=== PATIENT | female | born 1965 | race Caucasian/White ===

== ENCOUNTER 2017-06-26 03:00 | Inpatient (IN) | payer MEDICAID, OTHER ==
[~2017-06-26] VITALS: Ht 154.9 cm; Wt 77.4 kg
[~2017-06-26 03:00] MED LIST: PREN-39
[2017-06-26] MEDS ORDERED: HYDR25TA6 PO (03:48)
[2017-06-26] MEDS ORDERED: LISI10TA2 PO (03:48)
[2017-06-26 03:58] VITALS: BP 137/78; RESP 18
[2017-06-26 04:00] VITALS: Ht 154.9 cm; Wt 77.4 kg
[2017-06-26] MEDS ORDERED: ONDANSETRON 4 MG INJ IV PRN (04:00)
[2017-06-26] MEDS ORDERED: ACETAMINOPHEN 325 MG TAB PO PRN (04:00)
[2017-06-26] MEDS ORDERED: NACL 0.9% 3 ML SYG IV SCH (04:00)
[2017-06-26] MEDS ORDERED: BISACODYL (EC) 5 MG TAB PO PRN (04:00)
[2017-06-26] MEDS ORDERED: DOCUSATE SODIUM 100 MG CAP PO PRN (04:00)
[2017-06-26] MEDS ORDERED: ALBUTEROL 0.083% (NEB) 2.5 MG/3 ML AMP HHN SCH (05:00)
[2017-06-26] MEDS: ALBUTEROL 0.083% (NEB) 2.5 MG/3 ML AMP HHN SCH ×5 (05:32→20:29)
[2017-06-26 06:44] LABS: BASOPHILS % 0.1 % (0.0-2.0); HEMATOCRIT 40.9 % (37.0-47.0); HEMOGLOBIN 13.3 g/dl (12.0-16.0); LYMPHOCYTES # 1.6 10^3/ul (0.8-2.9); LYMPHOCYTES % 16.4 % (15.0-51.0); MEAN CORPUSCULAR HGB CONC 32.5 g/dl (32.0-37.0); MEAN CORPUSCULAR VOLUME 92.3 fl (82.0-101.0); MONOCYTES % 0.4 % (0.0-11.0); NEUTROPHIL # 8.2 10^3/ul (1.6-7.5); NEUTROPHILS % 82.8 % (39.0-77.0); PLATELET COUNT 246 10^3/UL (140-415); RED BLOOD COUNT 4.43 10^6/ul (4.20-5.40); RED CELL DISTRIBUTION WIDTH 13.4 % (11.5-14.5); WHITE BLOOD COUNT 9.9 10^3/ul (4.8-10.8)
[2017-06-26] MEDS: PANTOPRAZOLE (EC) 40 MG TAB PO SCH (07:05)
[2017-06-26] MEDS: FLUTICASONE 0.05% 16 GM NAS SPRAY NASAL SCH ×2 (07:05→20:41)
[2017-06-26 07:08] LABS: ALBUMIN 4.2 g/dl (3.3-4.9); ALBUMIN/GLOBULIN RATIO 1.27; BILIRUBIN,INDIRECT 0.2 mg/dl (0-1.1); BILIRUBIN,TOTAL 0.2 mg/dl (0.2-1.3); CALCIUM 9.7 mg/dl (8.4-10.2); CHOL/HDL RATIO 2.8 RATIO; CREATININE 0.72 mg/dl (0.44-1.00); MAGNESIUM 1.7 mg/dl (1.7-2.5); POTASSIUM 4.2 mmol/L (3.5-5.1); TOTAL PROTEIN 7.5 g/dl (6.1-8.1)
[2017-06-26] MEDS ORDERED: SOD CHLORIDE 0.9% 1,000 ML IV ONE ×2 (07:30→16:30)
--- NOTE | 2017-06-26 07:37 | HP ---
Date/Time of Note Date/Time of Note DATE: 06/26/17 TIME: 07:32 Assessment/Plan VTE Prophylaxis VTE Prophylaxis Intervention: SCD's Lines/Catheters IV Catheter Type (from [facility] Saline Lock Urinary Cath still in place: No Assessment/Plan Chief Complaint/Hosp Course This is a 52-year-old female being admitted to the [facility] floor for: #1 asthma exacerbation: Albuterol every 4 hours, prednisone 40 mg p.o. daily for 5 day burst.. Lactate level is elevated at 5. Patient is afebrile and normal white blood cell count. At the current time secondary to her extensive cough, will start her on Levaquin. Will order repeat chest x-ray. CTA scan as per the transfer facility was negative for pneumonia and PE, however family states they were told she had pneumonia. We may need to consult pulmonology. #2 lactic acidosis: Lactate level was 5.0. At the current time patient is afebrile and white blood cell count is normal As patient has been dealing with respiratory symptoms were approximately 1 month at the current time we will treat patient with Levaquin. Chest x-ray has been ordered. Blood cultures will also be drawn. Will provide patient with IV fluid hydration with normal saline. Will also order CRP and ESR level along with respiratory viral panel. #2 #3 persistent cough: Patient had a persistent cough for approximately 1 month. As per the transferring facility the chest x-ray and CTA were negative though I do not have the official results. We do have the disc which I will send to radiology for uploading and a read. Patient also states that she has acid reflux and she has also been on lisinopril for approximately 4 years. At the current time we will treat her with Protonix 40mg one tab daily. Will also hold the lisinopril and try an alternate agent such as an ARB. I will also give the patient Flonase. We may need to consult pulmonology. #4 hypertension: We will continue hydrochlorothiazide however we will hold the lisinopril at this time And likely will need to switch to a different medication such as an ARB. #5 DVT GI prophylaxis: SCDs, Protonix Further treatment strategy will be implemented for the clinical course : Problems: HPI/ROS Admit Date/Time Admit Date/Time Jun 26, 2017 at 03:00 Hx of Present Illness Finish my notes after my shift is Chief complaint: Cough 1 month, shortness of breath This is a 52-year-old female was transferred from [facility] 4 suspected asthma exacerbation. Patient states that she had a cough for approximately 1 month. She does report that at times she had noted subjective fevers as well. She states her cough is dry though at times she does feel like she has phlegm but she is unable to get it out. Of note patient also states that she has noticed a lot of burning in her chest area substernally especially when she eats fried or spicy foods. Of note when spoken to the ED physician at [facility] they stated the chest x-ray was negative and then the CTA of the chest was also negative. They reported that the lactate was within normal values however upon arrival of the patient and the document and after the documentation was reviewed show that the patient did have an elevated lactate level of approximately 21.3 as per their lab value range.. Repeat lactate level in our facility was 5. I do not have the reports for the chest x-ray or the CTA, a disc was sent we will need to upload that. Patient also states that she has been on her blood pressure medication hydrochlorothiazide and lisinopril for approximately 4 years. Allergies: NKDA Medications: See NOV ROS Const: As per HPI Eyes : No pain discharge or redness or change in visual acuity ENT: No pain, sore throat, congestion, congestion, dysphagia or discharge Respiratory: As per HPI Cardiovascular: No chest pain, palpitation, PND, or edema GI : no change in appetite, abdominal pain, nausea, vomiting, diarrhea, constipation, or change in the color his stool Genitourinary: No dysuria, hematuria, flank pain , discharge or CVA tenderness Musculoskeletal: No joint pain, back pain, neck pain, restricted range of motion in neck or joints Skin: No rash, bruising or hives Neuro: No headache, dizziness, syncope, seizure, focal weakness Endocrine: No polyuria, polydipsia, temperature intolerance Psych: No hallucination, depression, anxiety or suicidal ideation PMH/Family/Social Past Medical History Hypertension, asthma, acid reflux Past Surgical History Past Surgical Hx: no surgical history Family History Significant Family History: no pertinent family hx Social History Alcohol Use: none Smoking Status: Never smoker Drug Use: none Exam/Review of Systems Vital Signs Vitals Vital Signs Date Time Temp Pulse Resp B/P Pulse Ox O2 Delivery O2 Flow Rate FiO2 06/26/17 05:37 98 2.0 06/26/17 05:36 71 18 Nasal Cannula 06/26/17 03:58 98.0 137/78 Intake and Output 06/25/17 06/25/17 06/26/17 15:00 23:00 07:00 Intake Total 360 ml Balance 360 ml Exam Exam General: Patient is an obese female lying in bed in no acute respiratory distress but she is coughing HEENT: Atraumatic, normocephalic. The pupils are equal, round and reactive. Extraocular motor are intact Neck: Supple with full range of motion. No rigidity or meningismus Chest: Nontender Lungs: Clear to auscultation bilaterally, coughing nonproductive Heart: Normal S1-S2, Regular rhythm and rate. Abdomen: Soft , nontender, nondistended , bowel sounds are present. No guarding no rebound tenderness , No masses or organomegaly. No costovertebral temporal angle mass Extremities: Normal to inspection, no edema no cyanosis Neurologic: Normal mental status, speech normal, cranial nerves II through XII are intact, motor and sensory are intact, no focal weakness Labs Result Diagram: 06/26/17 0606/26/17 06 Medications Medications Current Medications Ondansetron HCl (Zofran Inj) 4 mg Q6H PRN IV NAUSEA AND/OR VOMITING; Start at 04:00 Acetaminophen (Tylenol Tab) 650 mg Q6H PRN PO PAIN LEVEL 1-3 OR FEVER; Start 06/26/17 at 04:00 Docusate Sodium (Colace) 100 mg Q12H PRN PO CONSTIPATION; Start 06/26/17 at 04 :00 Bisacodyl (Dulcolax) 5 mg DAILY PRN PO CONSTIPATION; Start 06/26/17 at 04:00 Pantoprazole (Protonix Tab) 40 mg DAILY@06 PO Last administered on 06/26/17 07:05; Admin Dose 40 MG; Start 06/26/17 at 06:00 Prednisone (Prednisone) 40 mg DAILY PO ; Start 06/26/17 at 09:00; Stop at 08:59 Fluticasone Propionate 1 spray 1 spray BID NASAL Last administered on 07:05; Admin Dose 1 SPRAY; Start 06/26/17 at 04:30 Sodium Chloride 1,000 ml @ 1,000 mls/hr Q1H ONCE IV ; Start 06/26/17 at 07:30 ; Stop 06/26/17 at 08:29 Sodium Chloride 1,000 ml @ 70 mls/hr [id number] IV ; Start 06/26/17 at 07:30 Levofloxacin/ Dextrose (Levaquin 750 Mg/ D5W 150 ml (Pmx)) 150 ml @ 100 mls/hr ONCE ONCE IVPB ; Start 06/26/17 at 07:30; Stop 06/26/17 at 08:59; Status NAZARIO LEW Jun 26, 2017 07:37
[2017-06-26 08:00] VITALS: BP 140/79; RESP 18
[2017-06-26 08:12] LABS: THYROID STIMULATING HORMONE 1.51 MIU/L (0.465-4.680)
[2017-06-26] MEDS: predniSONE 20 MG TAB PO SCH (08:29)
--- NOTE | 2017-06-26 08:43 | RADRPT ---
PROCEDURE: XR Chest PA and Lateral CLINICAL INDICATION: Cough x1 month TECHNIQUE: PA and Lateral views of the chest were obtained. COMPARISON: None. FINDINGS: Cardiovascular: The cardiovascular silhouette appears unremarkable. Lung Hernandes: The lung hernandes appear clear with no nodule, alveolar infiltrate, or interstitial promi nence evident. Pleural Spaces: No pneumothorax is identified and no effusion is evident. Osseous Structures: The osseous structures appear intact. Soft Tissues: The soft tissues appear unremarkable. IMPRESSION: Unremarkable chest. Physician Derik Date Time Electronically viewed and signed by Physician Derik on 06/26/2017 08:43 /
[2017-06-26] MEDS ORDERED: LEVOFLOXACIN 750MG/D5W (PMX) 150 ML IVPB ONE (09:00)
--- NOTE | 2017-06-26 10:03 | PN ---
Date/Time of Note Date/Time of Note DATE: 06/26/17 TIME: 10:03 Assessment/Plan VTE Prophylaxis VTE Prophylaxis Intervention: SCD's Lines/Catheters IV Catheter Type (from Nrs): Saline Lock Urinary Cath still in place: No Assessment/Plan Assessment/Plan 1. Acute asthma exacerbation - Patient has not been receiving adequate medication as outpatient for frequent use of rescue inhaler - Pulmonology on board and recommendations appreciated. Will need PFTs as outpatient - CXR showed no acute abnormalities - Currently short course of steroids - Started on Advair - PRN nebs 2. Sepsis secondary to ?PNA - LA on presentation 5 and repeat 4. 3. Will continue to trend until resolution - Currently on Levaquin and IVF - Per family, CT scan of chest performed at hospital prior to transferred showed pneumonia - Disk to be sent to our radiologist 3. Persistent cough - Given PPI and Flonase - will monitor - Guaifenesin with codeine for relief 4. HTN - on Hctz - Will monitor and adjust as needed - Was on Lisinopril at home but held due to dry cough - Will add ARB if BP elevated 5. Disposition - Continue monitoring Subjective 24 Hr Interval Summary Free Text/Dictation Patient states she still experiencing shortness of breath but improving after neb treatments and O2 supplements. Experiencing pain in right shoulder and diaphragm area secondary to coughing. Denies any fevers, chills, nausea, vomiting, or abdominal issues. States prior to 3 days ago she was needing to use her rescue inhaler at least 2 nights a week and 3-5 times weekly as well Exam/Review of Systems Vital Signs Vitals Vital Signs Date Time Temp Pulse Resp B/P Pulse Ox O2 Delivery O2 Flow Rate FiO2 06/26/17 08:22 99 18 96 Nasal Cannula 3.0 06/26/17 08:00 98.2 140/79 Intake and Output 06/25/17 06/25/17 06/26/17 15:00 23:00 07:00 Intake Total 360 ml Balance 360 ml Exam General: Obese female, in NAD, NC in place. occasional dry cough HEENT: Atraumatic, normocephalic. The pupils are equal, round and reactive. Extraocular motor are intact Neck: Supple with full range of motion. Lungs: Clear to auscultation bilaterally, no wheezing or crackles Heart: Normal S1-S2, Regular rhythm and rate. Abdomen: Soft , nontender, nondistended , bowel sounds are present. No guarding no rebound tenderness , No masses or organomegaly. No costovertebral temporal angle mass Extremities: Normal to inspection, no edema no cyanosis Neurologic: Normal mental status, speech normal, cranial nerves II through XII are intact, motor and sensory are intact, no focal weakness Results Result Diagram: 06/26/17 0601 06/26/17 0601 Results 24 hrs Laboratory Tests Test 06/26/17 06:01 06/26/17 06:12 White Blood Count 9.9 Red Blood Count 4.43 Hemoglobin 13.3 Hematocrit 40.9 Mean Corpuscular Volume 92.3 Mean Corpuscular Hemoglobin 30.0 Mean Corpuscular Hemoglobin Concent 32.5 Red Cell Distribution Width 13.4 Platelet Count 246 Mean Platelet Volume 12.0 H Neutrophils % 82.8 H Lymphocytes % 16.4 Monocytes % 0.4 Eosinophils % 0.0 Basophils % 0.1 Nucleated Red Blood Cells % 0.0 Neutrophils # 8.2 H Lymphocytes # 1.6 Monocytes # 0.0 L Eosinophils # 0.0 Basophils # 0.0 Nucleated Red Blood Cells # 0.0 Sodium Level 142 Potassium Level 4.2 Chloride Level 106 Carbon Dioxide Level 21 Anion Gap 19 H Blood Urea Nitrogen 10 Creatinine 0.72 Glucose Level 236 H Hemoglobin A1c 6.5 H Lactic Acid Level 5.0 *H Calcium Level 9.7 Magnesium Level 1.7 Total Bilirubin 0.2 Direct Bilirubin 0.00 Indirect Bilirubin 0.2 Aspartate Amino Transf (AST/SGOT) 30 Alanine Aminotransferase (ALT/SGPT) 43 Alkaline Phosphatase 88 Total Protein 7.5 Albumin 4.2 Globulin 3.30 H Albumin/Globulin Ratio 1.27 Triglycerides Level 55 Cholesterol Level 245 H LDL Cholesterol, Calculated 149 HDL Cholesterol 85 Cholesterol/HDL Ratio 2.8 Thyroid Stimulating Hormone (TSH) 1.510 C-Reactive Protein 0.8 Medications Medications Current Medications Ondansetron HCl (Zofran Inj) 4 mg Q6H PRN IV NAUSEA AND/OR VOMITING; Start at 04:00 Acetaminophen (Tylenol Tab) 650 mg Q6H PRN PO PAIN LEVEL 1-3 OR FEVER; Start 06/26/17 at 04:00 Docusate Sodium (Colace) 100 mg Q12H PRN PO CONSTIPATION; Start 06/26/17 at 04 :00 Bisacodyl (Dulcolax) 5 mg DAILY PRN PO CONSTIPATION; Start 06/26/17 at 04:00 Pantoprazole (Protonix Tab) 40 mg DAILY@06 PO Last administered on 06/26/17 07:05; Admin Dose 40 MG; Start 06/26/17 at 06:00 Prednisone (Prednisone) 40 mg DAILY PO Last administered on 06/26/17 08:29; Admin Dose 40 MG; Start 06/26/17 at 09:00; Stop 07/01/17 at 08:59 Fluticasone Propionate 1 spray 1 spray BID NASAL Last administered on 07:05; Admin Dose 1 SPRAY; Start 06/26/17 at 04:30 Sodium Chloride 1,000 ml @ 70 mls/hr [id number] IV ; Start 06/26/17 at 07:30 Levofloxacin/ Dextrose (Levaquin 750 Mg/ D5W 150 ml (Pmx)) 150 ml @ 100 mls/hr ONCE ONCE IVPB Last administered on 06/26/17 08:31; Admin Dose 100 MLS/HR; Start 06/26/17 at 09:00; Stop 06/26/17 at 10:29 Lidocaine (Lidoderm) 1 patch DAILY TD ; Start 06/26/17 at 10:00 Guaifenesin/ Codeine Phosphate (Robitussin Ac Liquid Cup) 5 ml Q4H PRN PO cough ; Start 06/26/17 at 10:00 MARYJO MOORE MD Jun 26, 2017 10:03
[2017-06-26] MEDS: SOD CHLORIDE 0.9% 1,000 ML IV SCH ×3 (10:52→23:49)
--- NOTE | 2017-06-26 12:39 | CONS ---
Date/Time of Note Date/Time of Note DATE: 06/26/17 TIME: 12:35 Assessment/Plan Assessment/Plan Additional Assessment/Plan Chest x-ray was reviewed from today which is totally clear. Assessment and recommendations; 1. Patient admitted with acute asthma exacerbation with bronchitis with marked clinical improvement. 2. Asthma suboptimally controlled on outpatient basis. Continue current treatment. Patient would benefit from a PFT on an outpatient basis. Also would benefit from initiation of long-acting steroid inhaler as well as bronchodilator on a regular basis. Consultation Date/Type/Reason Admit Date/Time Jun 26, 2017 at 03:00 Date of Consultation: Jun 26, 2017 Type of Consultation: Pulmonary Reason for Consultation Pulmonary consultation requested for evaluation of asthma. History of presenting any; patient is a pleasant 52-year-old lady who came into the emergency room early this morning with complaints of shortness of breath and wheezing going on for the last few days with cough and sputum production. Patient however denied having any fever, chills any body aches or myalgias. Upon evaluation patient was diagnosed with asthma exacerbation and started on prednisone with marked overall improvement. Next Past medical history; 1. History of lifelong asthma which apparently is suboptimally controlled on outpatient basis. 2. History of hypertension. Medications; reviewed. Allergies; none. Family history; patient is single she has 5 children. No history of any illnesses in the family. Occupational history; patient works in a [employer] factory. Pets; patient has 2 cats. Review systems; denies any headache, visual changes, sinus symptoms. Any chest pain. Shortness of breath is markedly improved. There has been interval resolution of wheezing. Complains of very scant cough. Denies any acid reflux. Any abdominal pain, nausea vomiting. Any weight loss. Any edema. And orthopnea. Any GI or urinary symptoms. Patient does complain of occasional wheezing off and on outpatient basis. Also complains of nocturnal wheezing. General exam; young female, awake alert, currently in no distress. Past Surgical History Past Surgical Hx: no surgical history Social History Alcohol Use: none Smoking Status: Never smoker Drug Use: none Exam/Review of Systems Vital Signs Vitals Vital Signs Date Time Temp Pulse Resp B/P Pulse Ox O2 Delivery O2 Flow Rate FiO2 06/26/17 08:22 99 18 96 Nasal Cannula 3.0 06/26/17 08:00 98.2 140/79 Intake and Output 06/25/17 06/25/17 06/26/17 15:00 23:00 07:00 Intake Total 360 ml Balance 360 ml Exam HEENT exam; supple neck, no JVD. No lymphadenopathy. Midline trachea. No thyromegaly. Pharynx is clear. Patient has good dentition. There is no sinus tenderness. Pupils are midsize and reactive to light. Chest exam; clear to auscultation. S1-S2 audible, no murmurs. Regular rhythm. Abdomen exam; soft, nontender. No organomegaly. Bowel sounds audible. Extremity exam; no peripheral edema. STAFF NUCLEAR MEDICINE TECHNOLOGIST exam; no focal deficit. Results Result Diagram: 06/26/17 0601 06/26/17 0601 Results 24 hrs Laboratory Tests Test 06/26/17 06:01 06/26/17 06:12 White Blood Count 9.9 Red Blood Count 4.43 Hemoglobin 13.3 Hematocrit 40.9 Mean Corpuscular Volume 92.3 Mean Corpuscular Hemoglobin 30.0 Mean Corpuscular Hemoglobin Concent 32.5 Red Cell Distribution Width 13.4 Platelet Count 246 Mean Platelet Volume 12.0 H Neutrophils % 82.8 H Lymphocytes % 16.4 Monocytes % 0.4 Eosinophils % 0.0 Basophils % 0.1 Nucleated Red Blood Cells % 0.0 Neutrophils # 8.2 H Lymphocytes # 1.6 Monocytes # 0.0 L Eosinophils # 0.0 Basophils # 0.0 Nucleated Red Blood Cells # 0.0 Sodium Level 142 Potassium Level 4.2 Chloride Level 106 Carbon Dioxide Level 21 Anion Gap 19 H Blood Urea Nitrogen 10 Creatinine 0.72 Glucose Level 236 H Hemoglobin A1c 6.5 H Lactic Acid Level 5.0 *H Calcium Level 9.7 Magnesium Level 1.7 Total Bilirubin 0.2 Direct Bilirubin 0.00 Indirect Bilirubin 0.2 Aspartate Amino Transf (AST/SGOT) 30 Alanine Aminotransferase (ALT/SGPT) 43 Alkaline Phosphatase 88 Total Protein 7.5 Albumin 4.2 Globulin 3.30 H Albumin/Globulin Ratio 1.27 Triglycerides Level 55 Cholesterol Level 245 H LDL Cholesterol, Calculated 149 HDL Cholesterol 85 Cholesterol/HDL Ratio 2.8 Thyroid Stimulating Hormone (TSH) 1.510 Erythrocyte Sedimentation Rate 21 C-Reactive Protein 0.8 Medications Medications Current Medications Ondansetron HCl (Zofran Inj) 4 mg Q6H PRN IV NAUSEA AND/OR VOMITING; Start at 04:00 Acetaminophen (Tylenol Tab) 650 mg Q6H PRN PO PAIN LEVEL 1-3 OR FEVER; Start 06/26/17 at 04:00 Docusate Sodium (Colace) 100 mg Q12H PRN PO CONSTIPATION; Start 06/26/17 at 04 :00 Bisacodyl (Dulcolax) 5 mg DAILY PRN PO CONSTIPATION; Start 06/26/17 at 04:00 Pantoprazole (Protonix Tab) 40 mg DAILY@06 PO Last administered on 06/26/17 07:05; Admin Dose 40 MG; Start 06/26/17 at 06:00 Prednisone (Prednisone) 40 mg DAILY PO Last administered on 06/26/17 08:29; Admin Dose 40 MG; Start 06/26/17 at 09:00; Stop 07/01/17 at 08:59 Fluticasone Propionate 1 spray 1 spray BID NASAL Last administered on 07:05; Admin Dose 1 SPRAY; Start 06/26/17 at 04:30 Sodium Chloride (NS) 1,000 ml @ 70 mls/hr [id number] IV Last administered on 10:52; Admin Dose 70 MLS/HR; Start 06/26/17 at 07:30 Lidocaine (Lidoderm) 1 patch DAILY TD ; Start 06/26/17 at 10:00 Guaifenesin/ Codeine Phosphate (Robitussin Ac Liquid Cup) 5 ml Q4H PRN PO cough ; Start 06/26/17 at 10:00 Salmeterol Xinafoate/ Fluticasone (Advair 100/50 Diskus) 1 inh BID INH ; Start 06/26/17 at 10:00 SARAH YOUNGER Jun 26, 2017 12:39
[2017-06-26] MEDS: SALMETEROL/FLUTICASONE 100/50 INHA INH SCH ×2 (13:10→20:41)
[2017-06-26] MEDS: LIDOCAINE 5% PATCH TD SCH (13:12)
[2017-06-26 14:00] VITALS: BP 129/77; RESP 18
[2017-06-26 20:12] VITALS: BP 117/72; RESP 18
[2017-06-27] MEDS: ALBUTEROL 0.083% (NEB) 2.5 MG/3 ML AMP HHN SCH ×6 (00:10→21:46)
[2017-06-27 02:19] VITALS: BP 131/77; RESP 18
[2017-06-27] MEDS: PANTOPRAZOLE (EC) 40 MG TAB PO SCH (06:08)
[2017-06-27 06:34] LABS: BASOPHILS % 0.2 % (0.0-2.0); HEMATOCRIT 38.1 % (37.0-47.0); HEMOGLOBIN 12.2 g/dl (12.0-16.0); LYMPHOCYTES % 25.3 % (15.0-51.0); MEAN CORPUSCULAR HEMOGLOBIN 30.1 pg (29.0-33.0); MEAN CORPUSCULAR VOLUME 94.1 fl (82.0-101.0); MEAN PLATELET VOLUME 11.9 fl (7.4-10.4); MONOCYTE # 0.7 10^3/ul (0.3-0.9); MONOCYTES % 6.1 % (0.0-11.0); NEUTROPHIL # 8.1 10^3/ul (1.6-7.5); NEUTROPHILS % 67.8 % (39.0-77.0); PLATELET COUNT 228 10^3/UL (140-415); RED BLOOD COUNT 4.05 10^6/ul (4.20-5.40); RED CELL DISTRIBUTION WIDTH 13.9 % (11.5-14.5); WHITE BLOOD COUNT 11.9 10^3/ul (4.8-10.8)
[2017-06-27 07:08] LABS: ALBUMIN 3.6 g/dl (3.3-4.9); CREATININE 0.71 mg/dl (0.44-1.00); PHOSPHORUS 3.6 mg/dl (2.5-4.9); POTASSIUM 4.2 mmol/L (3.5-5.1)
[2017-06-27 08:00] VITALS: BP 137/81; RESP 20
[2017-06-27] MEDS: predniSONE 20 MG TAB PO SCH (09:08)
[2017-06-27] MEDS: SALMETEROL/FLUTICASONE 100/50 INHA INH SCH ×2 (09:10→21:30)
[2017-06-27] MEDS: LIDOCAINE 5% PATCH TD SCH (09:10)
[2017-06-27] MEDS: FLUTICASONE 0.05% 16 GM NAS SPRAY NASAL SCH ×2 (09:10→21:30)
[2017-06-27] MEDS ORDERED: SOD CHLORIDE 0.9% 1,000 ML IV ONE (11:30)
--- NOTE | 2017-06-27 12:34 | CONS ---
Date/Time of Note Date/Time of Note DATE: 06/27/17 TIME: 12:32 Assessment/Plan Assessment/Plan Additional Assessment/Plan Assessment and recommendations; 1. Patient admitted with asthma exacerbation and acute bronchitis with marked clinical improvement. 2. Suboptimally controlled asthma on outpatient basis. Patient apparently only on short acting bronchodilator. Continue current treatment. Consider discharge. Patient would benefit from initiation of long-acting beta agonist in conjunction with the inhaled steroid on a regular basis. Consultation Date/Type/Reason Admit Date/Time Jun 26, 2017 at 03:00 Initial Consult Date 06/26/17 Type of Consultation: Pulmonary 24 HR Interval Summary Free Text/Dictation Patient's condition is stable. Denies any shortness of breath, wheezing or cough. General exam; young female, awake alert, currently in no distress. Exam/Review of Systems Vital Signs Vitals Vital Signs Date Time Temp Pulse Resp B/P Pulse Ox O2 Delivery O2 Flow Rate FiO2 06/27/17 08:58 2.0 06/27/17 08:44 96 20 06/27/17 08:00 98.8 137/81 98 06/27/17 04:18 21 06/26/17 08:22 Nasal Cannula Intake and Output 06/26/17 06/26/17 06/27/17 15:00 23:00 07:00 Intake Total 1150 ml 1780 ml 1580 ml Balance 1150 ml 1780 ml 1580 ml Exam HEENT exam; supple neck, no JVD. No lymphadenopathy. Midline trachea. No thyromegaly. Pharynx is clear. Patient has fair dentition. Chest exam; clear to auscultation. S1-S2 audible, no murmurs. Regular rhythm. Abdomen exam; soft, nontender. No organomegaly. Bowel sounds audible. Extremity exam; no peripheral edema. BUSINESS ACCOUNT SPECIALIST exam; no focal deficit. Results Result Diagram: 06/27/17 0548 06/27/17 0548 Results 24 hrs Laboratory Tests Test 06/26/17 13:58 06/26/17 14:51 06/26/17 17:33 06/26/17 18:27 Bedside Glucose 190 232 H Lactic Acid Level 4.8 *H 4.0 *H Test 06/26/17 22:13 06/27/17 05:48 06/27/17 09:31 Lactic Acid Level 3.9 *H 3.4 *H 3.6 *H White Blood Count 11.9 #H Red Blood Count 4.05 L Hemoglobin 12.2 Hematocrit 38.1 Mean Corpuscular Volume 94.1 Mean Corpuscular Hemoglobin 30.1 Mean Corpuscular Hemoglobin Concent 32.0 Red Cell Distribution Width 13.9 Platelet Count 228 Mean Platelet Volume 11.9 H Neutrophils % 67.8 Lymphocytes % 25.3 Monocytes % 6.1 Eosinophils % 0.0 Basophils % 0.2 Nucleated Red Blood Cells % 0.0 Neutrophils # 8.1 H Lymphocytes # 3.0 H Monocytes # 0.7 Eosinophils # 0.0 Basophils # 0.0 Nucleated Red Blood Cells # 0.0 Sodium Level 146 H Potassium Level 4.2 Chloride Level 112 H Carbon Dioxide Level 24 Anion Gap 14 Blood Urea Nitrogen 9 Creatinine 0.71 Glucose Level 108 # Calcium Level 9.0 Phosphorus Level 3.6 Magnesium Level 2.0 Albumin 3.6 Medications Medications Current Medications Ondansetron HCl (Zofran Inj) 4 mg Q6H PRN IV NAUSEA AND/OR VOMITING; Start at 04:00 Acetaminophen (Tylenol Tab) 650 mg Q6H PRN PO PAIN LEVEL 1-3 OR FEVER; Start 06/26/17 at 04:00 Docusate Sodium (Colace) 100 mg Q12H PRN PO CONSTIPATION; Start 06/26/17 at 04 :00 Bisacodyl (Dulcolax) 5 mg DAILY PRN PO CONSTIPATION; Start 06/26/17 at 04:00 Pantoprazole (Protonix Tab) 40 mg DAILY@06 PO Last administered on 06/27/17 06:08; Admin Dose 40 MG; Start 06/26/17 at 06:00 Prednisone (Prednisone) 40 mg DAILY PO Last administered on 06/27/17 09:08; Admin Dose 40 MG; Start 06/26/17 at 09:00; Stop 07/01/17 at 08:59 Fluticasone Propionate 1 spray 1 spray BID NASAL Last administered on 09:10; Admin Dose 1 SPRAY; Start 06/26/17 at 04:30 Sodium Chloride (NS) 1,000 ml @ 100 mls/hr Q10H IV Last administered on 23:49; Admin Dose 100 MLS/HR; Start 10/18/17 at 07:30 Lidocaine (Lidoderm) 1 patch DAILY TD Last administered on 06/27/17 09:10; Admin Dose 1 PATCH; Start 06/26/17 at 10:00 Guaifenesin/ Codeine Phosphate (Robitussin Ac Liquid Cup) 5 ml Q4H PRN PO cough ; Start 06/26/17 at 10:00 Salmeterol Xinafoate/ Fluticasone (Advair 100/50 Diskus) 1 inh BID INH Last administered on 06/27/17 09:10; Admin Dose 1 INH; Start 06/26/17 at 10:00 SARAH YOUNGER Jun 27, 2017 12:34
[2017-06-27 14:00] VITALS: BP 137/81; RESP 20
--- NOTE | 2017-06-27 14:34 | PN ---
Date/Time of Note Date/Time of Note DATE: 06/27/17 TIME: 14:34 Assessment/Plan VTE Prophylaxis VTE Prophylaxis Intervention: SCD's Lines/Catheters IV Catheter Type (from [facility]): Peripheral IV Urinary Cath still in place: No Assessment/Plan Assessment/Plan 1. Acute asthma exacerbation- improving - Patient feeling better and tolerating bronchodilators - Patient has not been receiving adequate medication as outpatient for frequent use of rescue inhaler - Pulmonology on board and recommendations appreciated. Will need PFTs as outpatient - CXR showed no acute abnormalities - Currently short course of steroids - Doing well on RA - PRN nebs 2. Sepsis secondary to ?PNA - LA still elevated but has been trending downward. LA this am was 3.6 and given another bolus of fluids. Will continue to trend until resolution - Currently on Levaquin and IVF - Per family, CT scan of chest performed at hospital prior to transferred showed pneumonia - Disk to be sent to our radiologist 3. Persistent cough - Given PPI and Flonase - will monitor - Guaifenesin with codeine for relief 4. HTN - on Hctz - Will monitor and adjust as needed - Was on Lisinopril at home but held due to dry cough. Currently stable 5. Disposition - Continue monitoring until resolution of lactic acid Subjective 24 Hr Interval Summary Free Text/Dictation Patient states her respiratory status has been improving on current treatments and has new complaints. No acute overnight events. Patient lactic acid is still elevated but has been trending downward.. Exam/Review of Systems Vital Signs Vitals Vital Signs Date Time Temp Pulse Resp B/P Pulse Ox O2 Delivery O2 Flow Rate FiO2 06/27/17 13:05 96 18 06/27/17 08:58 2.0 06/27/17 08:00 98.8 137/81 98 06/27/17 04:18 21 06/26/17 08:22 Nasal Cannula Intake and Output 06/26/17 06/26/17 06/27/17 15:00 23:00 07:00 Intake Total 1150 ml 1780 ml 1580 ml Balance 1150 ml 1780 ml 1580 ml Exam General: Obese female, in NAD HEENT: Atraumatic, normocephalic. The pupils are equal, round and reactive. Extraocular motor are intact Neck: Supple with full range of motion. Lungs: Clear to auscultation bilaterally, no wheezing or crackles Heart: Normal S1-S2, Regular rhythm and rate. Abdomen: Soft , nontender, nondistended , bowel sounds are present. No guarding no rebound tenderness , No masses or organomegaly. No costovertebral temporal angle mass Extremities: Normal to inspection, no edema no cyanosis Neurologic: Normal mental status, speech normal, cranial nerves II through XII are intact, motor and sensory are intact, no focal weakness Results Result Diagram: 06/27/17 0548 06/27/17 0548 Results 24 hrs Laboratory Tests Test 06/26/17 14:51 06/26/17 17:33 06/26/17 18:27 06/26/17 22:13 Lactic Acid Level 4.8 *H 4.0 *H 3.9 *H Bedside Glucose 232 H Test 06/27/17 05:48 06/27/17 09:31 06/27/17 13:00 White Blood Count 11.9 #H Red Blood Count 4.05 L Hemoglobin 12.2 Hematocrit 38.1 Mean Corpuscular Volume 94.1 Mean Corpuscular Hemoglobin 30.1 Mean Corpuscular Hemoglobin Concent 32.0 Red Cell Distribution Width 13.9 Platelet Count 228 Mean Platelet Volume 11.9 H Neutrophils % 67.8 Lymphocytes % 25.3 Monocytes % 6.1 Eosinophils % 0.0 Basophils % 0.2 Nucleated Red Blood Cells % 0.0 Neutrophils # 8.1 H Lymphocytes # 3.0 H Monocytes # 0.7 Eosinophils # 0.0 Basophils # 0.0 Nucleated Red Blood Cells # 0.0 Sodium Level 146 H Potassium Level 4.2 Chloride Level 112 H Carbon Dioxide Level 24 Anion Gap 14 Blood Urea Nitrogen 9 Creatinine 0.71 Glucose Level 108 # Lactic Acid Level 3.4 *H 3.6 *H 3.1 *H Calcium Level 9.0 Phosphorus Level 3.6 Magnesium Level 2.0 Albumin 3.6 Medications Medications Current Medications Ondansetron HCl (Zofran Inj) 4 mg Q6H PRN IV NAUSEA AND/OR VOMITING; Start at 04:00 Acetaminophen (Tylenol Tab) 650 mg Q6H PRN PO PAIN LEVEL 1-3 OR FEVER Last administered on 06/27/17t 14:19; Admin Dose 650 MG; Start 06/26/17 at 04:00 Docusate Sodium (Colace) 100 mg Q12H PRN PO CONSTIPATION; Start 06/26/17 at 04 :00 Bisacodyl (Dulcolax) 5 mg DAILY PRN PO CONSTIPATION; Start 06/26/17 at 04:00 Pantoprazole (Protonix Tab) 40 mg DAILY@06 PO Last administered on 06/27/17 06:08; Admin Dose 40 MG; Start 06/26/17 at 06:00 Prednisone (Prednisone) 40 mg DAILY PO Last administered on 06/27/17 09:08; Admin Dose 40 MG; Start 06/26/17 at 09:00; Stop 07/01/17 at 08:59 Fluticasone Propionate 1 spray 1 spray BID NASAL Last administered on 09:10; Admin Dose 1 SPRAY; Start 06/26/17 at 04:30 Sodium Chloride (NS) 1,000 ml @ 100 mls/hr Q10H IV Last administered on 23:49; Admin Dose 100 MLS/HR; Start 06/26/17 at 07:30 Lidocaine (Lidoderm) 1 patch DAILY TD Last administered on 06/27/17 09:10; Admin Dose 1 PATCH; Start 06/26/17 at 10:00 Guaifenesin/ Codeine Phosphate (Robitussin Ac Liquid Cup) 5 ml Q4H PRN PO cough ; Start 06/26/17 at 10:00 Salmeterol Xinafoate/ Fluticasone (Advair 100/50 Diskus) 1 inh BID INH Last administered on 06/27/17 09:10; Admin Dose 1 INH; Start 06/26/17 at 10:00 MARYJO MOORE MD Jun 27, 2017 14:34
[2017-06-27] MEDS: SOD CHLORIDE 0.9% 1,000 ML IV SCH ×2 (18:17→23:29)
[2017-06-27 20:05] VITALS: BP 137/69; RESP 18
[2017-06-27] MEDS ORDERED: SOD CHLORIDE 0.9% 500 ML IV ONE (22:00)
[2017-06-28] MEDS: ALBUTEROL 0.083% (NEB) 2.5 MG/3 ML AMP HHN SCH ×6 (01:31→20:48)
[2017-06-28 02:56] VITALS: BP 131/74; RESP 18
[2017-06-28] MEDS: PANTOPRAZOLE (EC) 40 MG TAB PO SCH (05:02)
[2017-06-28 06:12] LABS: BASOPHILS % 0.4 % (0.0-2.0); EOSINOPHILS % 0.4 % (0.0-7.0); HEMOGLOBIN 11.9 g/dl (12.0-16.0); LYMPHOCYTES # 3.6 10^3/ul (0.8-2.9); LYMPHOCYTES % 35.5 % (15.0-51.0); MEAN CORPUSCULAR HEMOGLOBIN 30.1 pg (29.0-33.0); MEAN CORPUSCULAR HGB CONC 32.2 g/dl (32.0-37.0); MEAN CORPUSCULAR VOLUME 93.7 fl (82.0-101.0); MEAN PLATELET VOLUME 12.1 fl (7.4-10.4); MONOCYTE # 0.7 10^3/ul (0.3-0.9); MONOCYTES % 6.6 % (0.0-11.0); NEUTROPHIL # 5.8 10^3/ul (1.6-7.5); NEUTROPHILS % 56.4 % (39.0-77.0); PLATELET COUNT 231 10^3/UL (140-415); RED BLOOD COUNT 3.95 10^6/ul (4.20-5.40); WHITE BLOOD COUNT 10.2 10^3/ul (4.8-10.8)
[2017-06-28 06:38] LABS: ALBUMIN 3.4 g/dl (3.3-4.9); CALCIUM 8.4 mg/dl (8.4-10.2); CREATININE 0.65 mg/dl (0.44-1.00); MAGNESIUM 2.1 mg/dl (1.7-2.5); PHOSPHORUS 2.9 mg/dl (2.5-4.9); POTASSIUM 3.7 mmol/L (3.5-5.1)
[2017-06-28 08:46] VITALS: BP 135/78; RESP 18
[2017-06-28] MEDS: predniSONE 20 MG TAB PO SCH (08:59)
[2017-06-28] MEDS: LIDOCAINE 5% PATCH TD SCH (08:59)
[2017-06-28] MEDS: SALMETEROL/FLUTICASONE 100/50 INHA INH SCH ×2 (09:01→23:05)
[2017-06-28] MEDS: FLUTICASONE 0.05% 16 GM NAS SPRAY NASAL SCH ×2 (09:01→23:05)
[2017-06-28] MEDS: SOD CHLORIDE 0.9% 1,000 ML IV SCH ×2 (10:54→22:07)
--- NOTE | 2017-06-28 10:55 | PN ---
Date/Time of Note Date/Time of Note DATE: 06/28/17 TIME: 10:55 Assessment/Plan VTE Prophylaxis VTE Prophylaxis Intervention: SCD's Lines/Catheters [facility] C[facility] Type [facility]from [facility]): Peripheral IV Urinary Cath still in place: No Assessment/Plan Assessment/Plan 1. Acute asthma exacerbation- improving - Patient feeling better and tolerating bronchodilators= - Pulmonology on board and recommendations appreciated. Will need PFTs as outpatient - CXR showed no acute abnormalities - Currently short course of steroids - Doing well on RA - PRN nebs 2. Sepsis secondary to ?PNA - Given history of persistent cough and elevated LA despite fluid resuscitation , CT of chest ordered to further evaluate. - Repeat LA this afternoon was 2.2 - Currently on Levaquin and IVF 3. Persistent cough - Given PPI and Flonase - will monitor - Guaifenesin with codeine for relief 4. HTN - on Hctz - Will monitor and adjust as needed - Was on Lisinopril at home but held due to dry cough. Currently stable 5. Disposition - awaiting CT chest results and normalization of lactic acid Subjective 24 Hr Interval Summary Free Text/Dictation Patient states she feeling better and denies any new complaints. No acute overnight events. Plans for CT scan chest today. Exam/Review of Systems Vital Signs Vitals Vital Signs Date Time Temp Pulse Resp B/P Pulse Ox O2 Delivery O2 Flow Rate FiO2 06/28/17 09:52 94 20 95 21 06/28/17 08:46 98.1 135/78 06/27/17 20:00 2.0 06/26/17 08:22 Nasal Cannula Intake and Output 06/27/17 06/27/17 06/28/17 15:00 23:00 07:00 Intake Total 1000 ml 1600 ml 740 ml Balance 1000 ml 1600 ml 740 ml Exam General: Obese female, in NAD HEENT: Atraumatic, normocephalic. The pupils are equal, round and reactive. Extraocular motor are intact Neck: Supple with full range of motion. Lungs: Clear to auscultation bilaterally, no wheezing or crackles Heart: Normal S1-S2, Regular rhythm and rate. Abdomen: Soft , nontender, nondistended , bowel sounds are present. No guarding no rebound tenderness , No masses or organomegaly. No costovertebral temporal angle mass Extremities: Normal to inspection, no edema no cyanosis Neurologic: Normal mental status, speech normal, cranial nerves II through XII are intact, motor and sensory are intact, no focal weakness Results Result Diagram: 06/28/17 0450 06/28/17 0450 Results 24 hrs Laboratory Tests Test 06/27/17 13:00 06/27/17 15:50 06/27/17 19:13 06/28/17 04:50 Lactic Acid Level 3.1 *H 4.5 *H 4.4 *H White Blood Count 10.2 Red Blood Count 3.95 L Hemoglobin 11.9 L Hematocrit 37.0 Mean Corpuscular Volume 93.7 Mean Corpuscular Hemoglobin 30.1 Mean Corpuscular Hemoglobin Concent 32.2 Red Cell Distribution Width 14.0 Platelet Count 231 Mean Platelet Volume 12.1 H Neutrophils % 56.4 Lymphocytes % 35.5 Monocytes % 6.6 Eosinophils % 0.4 Basophils % 0.4 Nucleated Red Blood Cells % 0.0 Neutrophils # 5.8 Lymphocytes # 3.6 H Monocytes # 0.7 Eosinophils # 0.0 Basophils # 0.0 Nucleated Red Blood Cells # 0.0 Sodium Level 144 Potassium Level 3.7 Chloride Level 113 H Carbon Dioxide Level 23 Anion Gap 12 Blood Urea Nitrogen 16 Creatinine 0.65 Glucose Level 111 Calcium Level 8.4 Phosphorus Level 2.9 Magnesium Level 2.1 Albumin 3.4 Medications Medications Current Medications Ondansetron HCl (Zofran Inj) 4 mg Q6H PRN IV NAUSEA AND/OR VOMITING; Start at 04:00 Acetaminophen (Tylenol Tab) 650 mg Q6H PRN PO PAIN LEVEL 1-3 OR FEVER Last administered on 06/27/17 14:19; Admin Dose 650 MG; Start 06/26/17 at 04:00 Docusate Sodium (Colace) 100 mg Q12H PRN PO CONSTIPATION; Start 06/26/17 at 04 :00 Bisacodyl (Dulcolax) 5 mg DAILY PRN PO CONSTIPATION; Start 06/26/17 at 04:00 Pantoprazole (Protonix Tab) 40 mg DAILY@06 PO Last administered on 06/28/17 05:02; Admin Dose 40 MG; Start 06/26/17 at 06:00 Prednisone (Prednisone) 40 mg DAILY PO Last administered on 06/28/17 08:59; Admin Dose 40 MG; Start 06/26/17 at 09:00; Stop 07/01/17 at 08:59 Fluticasone Propionate 1 spray 1 spray BID NASAL Last administered on 09:01; Admin Dose 1 SPRAY; Start 06/26/17 at 04:30 Sodium Chloride (NS) 1,000 ml @ 100 mls/hr Q10H IV Last administered on 10:54; Admin Dose 100 MLS/HR; Start 06/26/17 at 07:30 Lidocaine (Lidoderm) 1 patch DAILY TD Last administered on 06/28/17 08:59; Admin Dose 1 PATCH; Start 06/26/17 at 10:00 Guaifenesin/ Codeine Phosphate (Robitussin Ac Liquid Cup) 5 ml Q4H PRN PO cough ; Start 06/26/17 at 10:00 Salmeterol Xinafoate/ Fluticasone (Advair 100/50 Diskus) 1 inh BID INH Last administered on 06/28/17 09:01; Admin Dose 1 INH; Start 06/26/17 at 10:00 MARYJO MOORE MD Jun 28, 2017 10:55
[2017-06-28 14:35] VITALS: BP 155/89; RESP 18
--- NOTE | 2017-06-28 14:43 | RADRPT ---
PROCEDURE: CT Chest without contrast. CLINICAL INDICATION: Persistent cough. TECHNIQUE: Multiple contiguous helical CT images of the chest were obtained without the administra tion of intravenous contrast. Coronal and sagittal reformatted images were obtained from the source images. CTDIvol (mGy): 14.65; Total Exam DLP (mGy-cm): 558.85. One or more of the following dose reduction techniques were utilized: - Automated exposure control. - Adjustment of the mA and/or kV according to patient size. - Use of iterative reconstruction technique. COMPARISON: Chest x-ray 06/26/2017. FINDINGS: Limited imaging of the lower neck is unremarkable. The heart is not enlarged. Trace pericardial fluid is observed. There is no mediastinal, hilar or axillary lymphadenopathy. The thoracic aorta is normal in caliber. The pulmonary arteries are not enlarged. There is no pulmonary consolidation, pleural effusion or pulmonary nodule. The tracheobronchial belén e is normal in caliber. Scattered mild noncalcified pleural thickening is seen bilaterally within th e lower chest. Scattered minimal scarring versus atelectasis is seen within the lung bases. Faint br onchiolitis is seen within the lateral segment of the right middle lobe. Limited imaging of the upper abdomen demonstrates fatty infiltration of the liver. Skeletal structures are unremarkable. Chest wall soft tissues are unremarkable. IMPRESSION: Mild bronchiolitis within the right middle lobe with mild scattered nonspecific noncalcified pleural thickening within the bilateral lung bases. Scattered minimal scarring versus atelectasis within the lung bases. Fatty infiltration of the liver. No evidence of mass or lymphadenopathy of the chest. RPTAT: HLST .Leslie Chavarria MD, Date Time Electronically viewed and signed by .Leslie Chavarria MD, MD on 06/28/2017 14:43 .T/
[2017-06-28] MEDS ORDERED: SOD CHLORIDE 0.9% 500 ML IV ONE (20:30)
[2017-06-28 20:38] VITALS: BP 127/76; RESP 18
[2017-06-28] MEDS ORDERED: LEVOFLOXACIN 750MG/D5W (PMX) 150 ML IVPB SCH (21:30)
[2017-06-29] MEDS: ALBUTEROL 0.083% (NEB) 2.5 MG/3 ML AMP HHN SCH ×6 (00:49→21:09)
[2017-06-29] MEDS: SOD CHLORIDE 0.9% 1,000 ML IV SCH ×2 (01:30→11:22)
[2017-06-29 02:00] VITALS: BP 171/94; RESP 19
[2017-06-29] MEDS: PANTOPRAZOLE (EC) 40 MG TAB PO SCH (05:13)
[2017-06-29 06:51] LABS: BASOPHILS % 0.4 % (0.0-2.0); EOSINOPHILS # 0.1 10^3/ul (0.0-0.5); EOSINOPHILS % 0.5 % (0.0-7.0); HEMATOCRIT 39.7 % (37.0-47.0); HEMOGLOBIN 12.8 g/dl (12.0-16.0); LYMPHOCYTES # 4.2 10^3/ul (0.8-2.9); LYMPHOCYTES % 40.1 % (15.0-51.0); MEAN CORPUSCULAR HGB CONC 32.2 g/dl (32.0-37.0); MONOCYTE # 0.8 10^3/ul (0.3-0.9); MONOCYTES % 7.2 % (0.0-11.0); NEUTROPHIL # 5.4 10^3/ul (1.6-7.5); NEUTROPHILS % 51.2 % (39.0-77.0); PLATELET COUNT 238 10^3/UL (140-415); RED BLOOD COUNT 4.27 10^6/ul (4.20-5.40); RED CELL DISTRIBUTION WIDTH 13.9 % (11.5-14.5); WHITE BLOOD COUNT 10.6 10^3/ul (4.8-10.8)
[2017-06-29 07:46] LABS: ALBUMIN 3.7 g/dl (3.3-4.9); CALCIUM 9.1 mg/dl (8.4-10.2); CREATININE 0.7 mg/dl (0.44-1.00); MAGNESIUM 1.9 mg/dl (1.7-2.5); PHOSPHORUS 3.5 mg/dl (2.5-4.9); POTASSIUM 3.1 mmol/L (3.5-5.1)
[2017-06-29 07:50] VITALS: BP 170/96; RESP 20
[2017-06-29] MEDS: predniSONE 20 MG TAB PO SCH (08:45)
[2017-06-29] MEDS: FLUTICASONE 0.05% 16 GM NAS SPRAY NASAL SCH ×2 (08:45→20:13)
[2017-06-29] MEDS: SALMETEROL/FLUTICASONE 100/50 INHA INH SCH ×2 (08:45→20:13)
[2017-06-29] MEDS: LIDOCAINE 5% PATCH TD SCH (08:46)
[2017-06-29] MEDS: GUAIFENESIN/CODEINE 5ML CUP PO PRN (08:47)
[2017-06-29] MEDS ORDERED: POTASSIUM CHLORIDE (SR) 20 MEQ TAB PO STA (11:04)
--- NOTE | 2017-06-29 11:21 | PN ---
Date/Time of Note Date/Time of Note DATE: 06/29/17 TIME: 11:21 Assessment/Plan VTE Prophylaxis VTE Prophylaxis Intervention: LMWH Lines/Catheters [facility] Peripheral IV Urinary Cath still in place: No Assessment/Plan Assessment/Plan 1. Acute asthma exacerbation- improving - Patient feeling better and tolerating bronchodilators - Pulmonology on board and recommendations appreciated. Will need PFTs as outpatient - CXR showed no acute abnormalities - Will d/c on steroid taper - Doing well on RA - PRN nebs 2. Lactic acidosis - Patient LA keeps fluctuating. Will keep giving IVF and monitor - Will check procalcitonin to evaluate if infectious cause - CT chest negative for pneumonia - Continue on IVF 3. Persistent cough- improving - Given PPI and Flonase - will monitor - Guaifenesin with codeine for relief 4. HTN - on Hctz and Lisinopril - Will monitor and adjust as needed 5. Disposition - If stable in am, will d/c home Subjective 24 Hr Interval Summary Free Text/Dictation Patient states shes feeling better. No acute overnight events and no new complaints. Exam/Review of Systems Vital Signs Vitals Vital Signs Date Time Temp Pulse Resp B/P Pulse Ox O2 Delivery O2 Flow Rate FiO2 06/29/17 09:03 87 16 97 21 06/29/17 07:50 98.0 170/96 06/28/17 20:00 2.0 06/26/17 08:22 Nasal Cannula Intake and Output 06/28/17 06/28/17 06/29/17 14:59 22:59 06:59 Intake Total 1000 ml 1200 ml 240 ml Balance 1000 ml 1200 ml 240 ml Exam General: Obese female, in NAD HEENT: Atraumatic, normocephalic. The pupils are equal, round and reactive. Extraocular motor are intact Neck: Supple with full range of motion. Lungs: Clear to auscultation bilaterally, no wheezing or crackles Heart: Normal S1-S2, Regular rhythm and rate. Abdomen: Soft , nontender, nondistended , bowel sounds are present. No guarding no rebound tenderness Extremities: Normal to inspection, no edema no cyanosis Neurologic: Normal mental status, speech normal, cranial nerves II through XII are intact, motor and sensory are intact, no focal weakness Results Result Diagram: 06/29/1751406/29/17514 Results 24 hrs Laboratory Tests Test 06/28/17 11:44 06/28/17 17:55 06/29/17 00:52 06/29/17 05:15 Lactic Acid Level 2.2 *H 4.6 *H 2.0 White Blood Count 10.6 Red Blood Count 4.27 Hemoglobin 12.8 Hematocrit 39.7 Mean Corpuscular Volume 93.0 Mean Corpuscular Hemoglobin 30.0 Mean Corpuscular Hemoglobin Concent 32.2 Red Cell Distribution Width 13.9 Platelet Count 238 Mean Platelet Volume 12.0 H Neutrophils % 51.2 Lymphocytes % 40.1 Monocytes % 7.2 Eosinophils % 0.5 Basophils % 0.4 Nucleated Red Blood Cells % 0.0 Neutrophils # 5.4 Lymphocytes # 4.2 H Monocytes # 0.8 Eosinophils # 0.1 Basophils # 0.0 Nucleated Red Blood Cells # 0.0 Sodium Level 145 H Potassium Level 3.1 L Chloride Level 110 Carbon Dioxide Level 26 Anion Gap 12 Blood Urea Nitrogen 13 Creatinine 0.70 Glucose Level 86 Calcium Level 9.1 Phosphorus Level 3.5 Magnesium Level 1.9 Albumin 3.7 Test 06/29/17 06:11 06/29/17 11:15 Lactic Acid Level 2.5 *H Lab Scanned Report REFERENCE LAB Medications Medications Current Medications Ondansetron HCl (Zofran Inj) 4 mg Q6H PRN IV NAUSEA AND/OR VOMITING; Start at 04:00 Acetaminophen (Tylenol Tab) 650 mg Q6H PRN PO PAIN LEVEL 1-3 OR FEVER Last administered on 06/27/17 14:19; Admin Dose 650 MG; Start 06/26/17 at 04:00 Docusate Sodium (Colace) 100 mg Q12H PRN PO CONSTIPATION; Start 06/26/17 at 04 :00 Bisacodyl (Dulcolax) 5 mg DAILY PRN PO CONSTIPATION; Start 06/26/17 at 04:00 Pantoprazole (Protonix Tab) 40 mg DAILY@06 PO Last administered on 06/29/17 05:13; Admin Dose 40 MG; Start 06/26/17 at 06:00 Prednisone (Prednisone) 40 mg DAILY PO Last administered on 06/29/17 08:45; Admin Dose 40 MG; Start 06/26/17 at 09:00; Stop 07/01/17 at 08:59 Fluticasone Propionate 1 spray 1 spray BID NASAL Last administered on 08:45; Admin Dose 1 SPRAY; Start 06/26/17 at 04:30 Sodium Chloride (NS) 1,000 ml @ 100 mls/hr Q10H IV Last administered on 01:30; Admin Dose 100 MLS/HR; Start 06/26/17 at 07:30 Lidocaine (Lidoderm) 1 patch DAILY TD Last administered on 06/29/17 08:46; Admin Dose 1 PATCH; Start 06/26/17 at 10:00 Guaifenesin/ Codeine Phosphate (Robitussin Ac Liquid Cup) 5 ml Q4H PRN PO cough Last administered on 06/29/17 08:47; Admin Dose 5 ML; Start 06/26/17 at 10:00 Salmeterol Xinafoate/ Fluticasone 1 inh 1 inh BID INH Last administered on 08:45; Admin Dose 1 INH; Start 06/26/17 at 10:00 Levofloxacin/ Dextrose (Levaquin 750 Mg/ D5W 150 ml (Pmx)) 150 ml @ 100 mls/hr Q24H IVPB Last administered on 06/28/17 23:05; Admin Dose 100 MLS/HR; Start 06/28/17 at 21:30 Potassium Chloride (Klor-Con 20) 40 meq 1500 ONCE PO ; Start 06/29/17 at 15:00 ; Stop 06/29/17 at 15:01 Lisinopril (Zestril) 10 mg DAILY PO ; Start 06/29/17 at 11:30; Status UNV Hydrochlorothiazide (Hydrochlorothiazide) 25 mg DAILY PO ; Start 06/29/17 at 11 :30; Status UNV MARYJO MOORE MD Jun 29, 2017 11:21 MARYJO MOORE MD Jun 29, 2017 11:21
[2017-06-29] MEDS: HYDROCHLOROTHIAZIDE 25 MG TAB PO SCH (14:27)
[2017-06-29] MEDS: LISINOPRIL 10 MG TAB PO SCH (14:28)
[2017-06-29 14:46] VITALS: BP 149/89; RESP 18
[2017-06-29] MEDS ORDERED: POTASSIUM CHLORIDE (SR) 20 MEQ TAB PO ONE (15:00)
--- NOTE | 2017-06-29 17:11 | CONS ---
Date/Time of Note Date/Time of Note DATE: 06/29/17 TIME: 17:10 Consult Date/Type/Reason Admit Date/Time Jun 26, 2017 at 03:00 Initial Consult Date 06/26/17 Type of Consultation: Pulmonary Subjective No events. Objective Vital Signs Date Time Temp Pulse Resp B/P Pulse Ox O2 Delivery O2 Flow Rate FiO2 06/29/17 14:46 98.5 96 18 149/89 98 06/29/17 13:09 21 06/28/17 20:00 2.0 06/26/17 08:22 Nasal Cannula Intake and Output 06/28/17 06/28/17 06/29/17 15:00 23:00 07:00 Intake Total 1000 ml 1200 ml 240 ml Balance 1000 ml 1200 ml 240 ml Exam HEENT: Neck supple; no JVD; no LAD CVS: RRR, S1 and S2 CHEST: Clear ABD: Soft, NT, + BS EXT: No c/c/e Results/Medications Result Diagram: 06/29/17 0515 06/29/17 0515 Results 24 hrs Laboratory Tests Test 06/28/17 17:55 06/29/17 00:52 06/29/17 05:15 06/29/17 06:11 Lactic Acid Level 4.6 *H 2.0 2.5 *H White Blood Count 10.6 Red Blood Count 4.27 Hemoglobin 12.8 Hematocrit 39.7 Mean Corpuscular Volume 93.0 Mean Corpuscular Hemoglobin 30.0 Mean Corpuscular Hemoglobin Concent 32.2 Red Cell Distribution Width 13.9 Platelet Count 238 Mean Platelet Volume 12.0 H Neutrophils % 51.2 Lymphocytes % 40.1 Monocytes % 7.2 Eosinophils % 0.5 Basophils % 0.4 Nucleated Red Blood Cells % 0.0 Neutrophils # 5.4 Lymphocytes # 4.2 H Monocytes # 0.8 Eosinophils # 0.1 Basophils # 0.0 Nucleated Red Blood Cells # 0.0 Sodium Level 145 H Potassium Level 3.1 L Chloride Level 110 Carbon Dioxide Level 26 Anion Gap 12 Blood Urea Nitrogen 13 Creatinine 0.70 Glucose Level 86 Calcium Level 9.1 Phosphorus Level 3.5 Magnesium Level 1.9 Albumin 3.7 Test 06/29/17 10:47 06/29/17 11:15 06/29/17 12:30 Lactic Acid Level 2.5 *H 3.2 *H Lab Scanned Report REFERENCE LAB Medications Current Medications Ondansetron HCl (Zofran Inj) 4 mg Q6H PRN IV NAUSEA AND/OR VOMITING; Start at 04:00 Acetaminophen (Tylenol Tab) 650 mg Q6H PRN PO PAIN LEVEL 1-3 OR FEVER Last administered on 06/27/17 14:19; Admin Dose 650 MG; Start 06/26/17 at 04:00 Docusate Sodium (Colace) 100 mg Q12H PRN PO CONSTIPATION; Start 06/26/17 at 04 :00 Bisacodyl (Dulcolax) 5 mg DAILY PRN PO CONSTIPATION; Start 06/26/17 at 04:00 Pantoprazole (Protonix Tab) 40 mg DAILY@06 PO Last administered on 06/29/17 05:13; Admin Dose 40 MG; Start 06/26/17 at 06:00 Prednisone (Prednisone) 40 mg DAILY PO Last administered on 06/29/17 08:45; Admin Dose 40 MG; Start 06/26/17 at 09:00; Stop 07/01/17 at 08:59 Fluticasone Propionate 1 spray 1 spray BID NASAL Last administered on 08:45; Admin Dose 1 SPRAY; Start 06/26/17 at 04:30 Sodium Chloride (NS) 1,000 ml @ 100 mls/hr Q10H IV Last administered on 11:22; Admin Dose 100 MLS/HR; Start 06/26/17 at 07:30 Lidocaine (Lidoderm) 1 patch DAILY TD Last administered on 06/29/17 08:46; Admin Dose 1 PATCH; Start 06/26/17 at 10:00 Guaifenesin/ Codeine Phosphate (Robitussin Ac Liquid Cup) 5 ml Q4H PRN PO cough Last administered on 06/29/17 08:47; Admin Dose 5 ML; Start 06/26/17 at 10:00 Salmeterol Xinafoate/ Fluticasone 1 inh 1 inh BID INH Last administered on 08:45; Admin Dose 1 INH; Start 06/26/17 at 10:00 Levofloxacin/ Dextrose (Levaquin 750 Mg/ D5W 150 ml (Pmx)) 150 ml @ 100 mls/hr Q24H IVPB Last administered on 06/28/17 23:05; Admin Dose 100 MLS/HR; Start 06/28/17 at 21:30 Lisinopril (Zestril) 10 mg DAILY PO Last administered on 06/29/17 14:28; Admin Dose 10 MG; Start 06/29/17 at 11:30 Hydrochlorothiazide (Hydrochlorothiazide) 25 mg DAILY PO Last administered on 06/29/17 14:27; Admin Dose 25 MG; Start 06/29/17 at 11:30 Assessment/Plan Additional Assessment/Plan IMP: 1. Acute Asthma Exacerbation RECS: 1. Ambulate OOB---> if okay would consider D/C with CS taper; ICS; BHARAT; with outpatient PFT's and pulm follow-up GRACIELA CANALES MD Jun 29, 2017 17:11
[2017-06-29 20:54] VITALS: BP 134/94; RESP 17
[2017-06-30] MEDS: ALBUTEROL 0.083% (NEB) 2.5 MG/3 ML AMP HHN SCH ×4 (01:06→12:09)
[2017-06-30] MEDS: SOD CHLORIDE 0.9% 1,000 ML IV SCH ×2 (01:17→09:24)
[2017-06-30 02:00] VITALS: BP 139/88; RESP 17
[2017-06-30 06:05] LABS: BASOPHIL # 0.1 10^3/ul (0.0-0.1); BASOPHILS % 0.5 % (0.0-2.0); EOSINOPHILS % 0.4 % (0.0-7.0); HEMATOCRIT 43.2 % (37.0-47.0); HEMOGLOBIN 13.6 g/dl (12.0-16.0); LYMPHOCYTES # 4.2 10^3/ul (0.8-2.9); LYMPHOCYTES % 39.7 % (15.0-51.0); MEAN CORPUSCULAR HEMOGLOBIN 28.6 pg (29.0-33.0); MEAN CORPUSCULAR HGB CONC 31.5 g/dl (32.0-37.0); MEAN CORPUSCULAR VOLUME 90.9 fl (82.0-101.0); MEAN PLATELET VOLUME 11.5 fl (7.4-10.4); MONOCYTE # 0.6 10^3/ul (0.3-0.9); NEUTROPHIL # 5.5 10^3/ul (1.6-7.5); NEUTROPHILS % 52.6 % (39.0-77.0); PLATELET COUNT 267 10^3/UL (140-415); RED BLOOD COUNT 4.75 10^6/ul (4.20-5.40); RED CELL DISTRIBUTION WIDTH 14.1 % (11.5-14.5); WHITE BLOOD COUNT 10.5 10^3/ul (4.8-10.8)
[2017-06-30] MEDS: PANTOPRAZOLE (EC) 40 MG TAB PO SCH (06:11)
[2017-06-30 06:27] LABS: ALBUMIN 3.9 g/dl (3.3-4.9); CALCIUM 10.1 mg/dl (8.4-10.2); CREATININE 0.73 mg/dl (0.44-1.00); PHOSPHORUS 4.9 mg/dl (2.5-4.9)
[2017-06-30 08:00] VITALS: BP 140/88; RESP 19
[2017-06-30] MEDS: FLUTICASONE 0.05% 16 GM NAS SPRAY NASAL SCH (09:20)
[2017-06-30] MEDS: HYDROCHLOROTHIAZIDE 25 MG TAB PO SCH (09:21)
[2017-06-30] MEDS: SALMETEROL/FLUTICASONE 100/50 INHA INH SCH (09:21)
[2017-06-30] MEDS: GUAIFENESIN/CODEINE 5ML CUP PO PRN (09:21)
[2017-06-30] MEDS: predniSONE 20 MG TAB PO SCH (09:21)
[2017-06-30] MEDS: LIDOCAINE 5% PATCH TD SCH (09:23)
[2017-06-30] MEDS: LISINOPRIL 10 MG TAB PO SCH (09:23)
--- NOTE | 2017-06-30 09:47 | PN ---
Date/Time of Note Date/Time of Note DATE: 06/30/17 TIME: 09:45 Assessment/Plan VTE Prophylaxis VTE Prophylaxis Intervention: LMWH Lines/Catheters IV [facility]ter Type (from [facility] Peripheral IV Urinary Cath still in place: No Assessment/Plan Assessment/Plan 1. Acute asthma exacerbation- resolved - Patient feeling better and tolerating bronchodilators - Pulmonology on board and recommendations appreciated. Will need PFTs as outpatient - CXR showed no acute abnormalities - Will d/c on steroid taper - Doing well on room air 2. Lactic acidosis - Patient LA keeps fluctuating but trending downward. - CT chest negative for pneumonia 3. Persistent cough- improving - Given PPI and Flonase - will monitor - Guaifenesin with codeine for relief 4. HTN - on Hctz and Lisinopril - Will monitor and adjust as needed 5. Disposition - Stable for discharge home. Subjective 24 Hr Interval Summary Free Text/Dictation Patient doing well and denies any new complaints. No acute overnight events. Respiratory status has significantly improved. Exam/Review of Systems Vital Signs Vitals Vital Signs Date Time Temp Pulse Resp B/P Pulse Ox O2 Delivery O2 Flow Rate FiO2 06/30/17 08:13 75 14 93 21 06/30/17 02:00 97.6 139/88 06/29/17 20:00 2.0 06/26/17 08:22 Nasal Cannula Intake and Output 06/29/17 06/29/17 06/30/17 15:00 23:00 07:00 Intake Total 600 ml 1960 ml 740 ml Balance 600 ml 1960 ml 740 ml Exam General: Obese female, in NAD HEENT: Atraumatic, normocephalic. The pupils are equal, round and reactive. Extraocular motor are intact Neck: Supple with full range of motion. Lungs: Clear to auscultation bilaterally, no wheezing or crackles Heart: Normal S1-S2, Regular rhythm and rate. Abdomen: Soft , nontender, nondistended , bowel sounds are present. No guarding no rebound tenderness Extremities: Normal to inspection, no edema no cyanosis Neurologic: Normal mental status, speech normal, cranial nerves II through XII are intact, motor and sensory are intact, no focal weakness Results Result Diagram: 06/30/17 0510 06/30/17 0510 Results 24 hrs Laboratory Tests Test 06/29/17 10:47 06/29/17 11:15 10/21/17 12:30 06/30/17 05:10 Lactic Acid Level 2.5 *H 3.2 *H 2.4 *H Lab Scanned Report REFERENCE LAB White Blood Count 10.5 Red Blood Count 4.75 Hemoglobin 13.6 Hematocrit 43.2 Mean Corpuscular Volume 90.9 Mean Corpuscular Hemoglobin 28.6 L Mean Corpuscular Hemoglobin Concent 31.5 L Red Cell Distribution Width 14.1 Platelet Count 267 Mean Platelet Volume 11.5 H Neutrophils % 52.6 Lymphocytes % 39.7 Monocytes % 6.0 Eosinophils % 0.4 Basophils % 0.5 Nucleated Red Blood Cells % 0.0 Neutrophils # 5.5 Lymphocytes # 4.2 H Monocytes # 0.6 Eosinophils # 0.0 Basophils # 0.1 Nucleated Red Blood Cells # 0.0 Sodium Level 141 Potassium Level 4.0 Chloride Level 103 Carbon Dioxide Level 30 Anion Gap 12 Blood Urea Nitrogen 12 Creatinine 0.73 Glucose Level 94 Calcium Level 10.1 Phosphorus Level 4.9 Magnesium Level 2.0 Albumin 3.9 Medications Medications Current Medications Ondansetron HCl (Zofran Inj) 4 mg Q6H PRN IV NAUSEA AND/OR VOMITING; Start at 04:00 Acetaminophen (Tylenol Tab) 650 mg Q6H PRN PO PAIN LEVEL 1-3 OR FEVER Last administered on 06/27/17 14:19; Admin Dose 650 MG; Start 06/26/17 at 04:00 Docusate Sodium (Colace) 100 mg Q12H PRN PO CONSTIPATION; Start 06/26/17 at 04 :00 Bisacodyl (Dulcolax) 5 mg DAILY PRN PO CONSTIPATION; Start 06/26/17 at 04:00 Pantoprazole (Protonix Tab) 40 mg DAILY@06 PO Last administered on 06/30/17 06:11; Admin Dose 40 MG; Start 06/26/17 at 06:00 Prednisone (Prednisone) 40 mg DAILY PO Last administered on 06/30/17 09:21; Admin Dose 40 MG; Start 06/26/17 at 09:00; Stop 07/01/17 at 08:59 Fluticasone Propionate 1 spray 1 spray BID NASAL Last administered on 09:20; Admin Dose 1 SPRAY; Start 06/26/17 at 04:30 Sodium Chloride (NS) 1,000 ml @ 100 mls/hr Q10H IV Last administered on 09:24; Admin Dose 100 MLS/HR; Start 06/26/17 at 07:30 Lidocaine (Lidoderm) 1 patch DAILY TD Last administered on 06/30/17 09:23; Admin Dose 1 PATCH; Start 06/26/17 at 10:00 Guaifenesin/ Codeine Phosphate (Robitussin Ac Liquid Cup) 5 ml Q4H PRN PO cough Last administered on 06/30/17 09:21; Admin Dose 5 ML; Start 06/26/17 at 10:00 Salmeterol Xinafoate/ Fluticasone (Advair 100/50 Diskus) 1 inh BID INH Last administered on 06/30/17 09:21; Admin Dose 1 INH; Start 06/26/17 at 10:00 Lisinopril (Zestril) 10 mg DAILY PO Last administered on 06/30/17 09:23; Admin Dose 10 MG; Start 06/29/17 at 11:30 Hydrochlorothiazide (Hydrochlorothiazide) 25 mg DAILY PO Last administered on 06/30/17 09:21; Admin Dose 25 MG; Start 06/29/17 at 11:30 MARYJO MOORE MD Jun 30, 2017 09:47
[2017-06-30] MEDS ORDERED: FLUT16SP17 NASAL (09:52)
[2017-06-30] MEDS ORDERED: ADV10050 INH (09:52)
[2017-06-30] MEDS ORDERED: ALBU8.5H3 INH (09:52)
[2017-06-30] MEDS ORDERED: PRED10TA PO (09:52)
--- NOTE | 2017-06-30 09:56 | PDOCDIS ---
Discharge Instructions DIAGNOSIS Discharge Diagnosis 1. Acute asthma exacerbation- resolved 2. Lactic acidosis- improved 3. Persistent cough- improving 4. HTN CONDITION Patient Condition: Good HOME CARE INSTRUCTIONS: Diet Instructions: Low Fat /CholesterolSpecial Diet: regular diet ACTIVITY: Activity Restrictions: No Restrictions FOLLOW UP/APPOINTMENTS Follow-up Plan 1. Continue Prednisone taper as follows- 30mg (3 tablets) for 3 days starting tomorrow the 20mg (2 tablets) for 3 days then 10mg (1 tablet) for 3 days then stop 2. Take Claritin, Zyrtec, or Margy daily to help with cat allergies 3. Take new inhaler as prescribed and make sure to rinse mouth out with water after use 4. Use rescue inhaler as needed for shortness of breath 5. Follow up with Lung specialist for outpatient PFT testing REFERRALS Other Referrals Donald Brandon MD Specialty: Pulmonary Medicine Office Address [address], [address] [place] [address] Office SCHOOL/WORK RELEASE May return to School/Work on: Jul 01, 2017 May return to School/Work with: No Restrictions MARYJO MOORE MD Jun 30, 2017 09:56
--- NOTE | 2017-06-30 09:56 | DS ---
Date/Time of Note Date/Time of Note DATE: 06/30/17 TIME: 09:56 Discharge Summary Admission/Discharge Info Admit Date/Time Jun 26, 2017 at 03:00 Discharge Date/Time Discharge Diagnosis 1. Acute asthma exacerbation- resolved 2. Lactic acidosis- improved 3. Persistent cough- improving 4. HTN Patient Condition: Good Consults Pulmonology- Dr. Brandon Hx of Present Illness Chief complaint: Cough 1 month, shortness of breath This is a 52-year-old female was transferred from [facility] 4 suspected asthma exacerbation. Patient states that she had a cough for approximately 1 month. She does report that at times she had noted subjective fevers as well. She states her cough is dry though at times she does feel like she has phlegm but she is unable to get it out. Of note patient also states that she has noticed a lot of burning in her chest area substernally especially when she eats fried or spicy foods. Of note when spoken to the ED physician at [facility] they stated the chest x-ray was negative and then the CTA of the chest was also negative. They reported that the lactate was within normal values however upon arrival of the patient and the document and after the documentation was reviewed show that the patient did have an elevated lactate level of approximately 21.3 as per their lab value range.. Repeat lactate level in our facility was 5. I do not have the reports for the chest x-ray or the CTA, a disc was sent we will need to upload that. Patient also states that she has been on her blood pressure medication hydrochlorothiazide and lisinopril for approximately 4 years. Allergies: NKDA Medications: See MAR Hospital Course Patient was admitted for asthma exacerbation and started on bronchodilators, steroids, and antibiotics. Pulmonology was consulted for further recommendations. Patient was requiring supplemental O2 due to respiratory distress. She was started on Flonase and PPI for persistent cough and well as antitussive. Patient had a persistently elevated lactic acid that fluctuated during hospital stay. CXR performed was negative for any acute abnormalities and CT scan showed Mild bronchiolitis within the right middle lobe with mild scattered nonspecific noncalcified pleural thickening within the bilateral lung bases. Scattered minimal scarring versus atelectasis within the lung bases. Patient was doing well and condition improved. Her respiratory status improved and was discharged on steroid taper, ICS; BHARAT; with outpatient PFT's and pulm follow-up. She scheduled an appointment to follow up with her PCP tomorrow. Patient was discharged home in good condition. Instructed to take antihistamine due to exposure to cats at home which probably was exacerbating her asthma symptoms. Home Meds Active Scripts Albuterol Sulfate* (Proair HFA*) 8.5 Gm Hfa.aer.ad, 2 PUFF INH Q4H Y for WHEEZING AND SOB, #1 INHALER Prov:MARYJO MOORE MD 06/30/17 Prednisone* (Prednisone*) 10 Mg Tab, 10 MG PO DAILY for 9 Days, #18 TAB 3 tabs (30mg) for 3 days then 2 tab(20mg) for 3 days then 1 tab (10mg) for 3 days Prov:MARYJO MOORE MD 06/30/17 Fluticasone Propionate* (Fluticasone Propionate* Nasal) 50 Mcg/[place] - 16 Gm [place].susp, 1 SPRAY NASAL BID for 30 Days, #1 BOTTLE Prov:MARYJO MOORE MD 06/30/17 Salmeterol Xinaf-Fluticasone* (Advair*) 100/50 Diskus Inhaler, 1 INH INH BID for 30 Days, #1 DISK Prov:MARYJO MOORE MD 06/30/17 Reported Medications Hydrochlorothiazide (Hydrochlorothiazide) 25 Mg Tablet, 25 MG PO DAILY, #30 TAB 06/26/17 Lisinopril* (Lisinopril*) 10 Mg Tablet, 10 MG PO DAILY, #30 TAB 06/26/17 Vits W-Ca,Fe,Fa(<1MG) ( Vitamins) 1 Tab Tablet 11/04/10 Follow-up Plan 1. Continue Prednisone taper as follows- 30mg (3 tablets) for 3 days starting tomorrow the 20mg (2 tablets) for 3 days then 10mg (1 tablet) for 3 days then stop 2. Take Claritin, Zyrtec, or Margy daily to help with cat allergies 3. Take new inhaler as prescribed and make sure to rinse mouth out with water after use 4. Use rescue inhaler as needed for shortness of breath 5. Follow up with Lung specialist for outpatient PFT testing Primary Care Provider Jie Panda Time spent on discharge: > 30 minutes Pending Labs Laboratory Tests Test 06/29/17 10:47 06/29/17 11:15 06/29/17 12:30 06/30/17 05:10 Lactic Acid Level 2.5mmol/L (0.5-2.0) 3.2mmol/L (0.5-2.0) 2.4mmol/L (0.5-2.0) Lab Scanned Report REFERENCE [id number] White Blood Count 10.510^3/ul (4.8-10.8) Red Blood Count 4.7510^6/ul (4.20-5.40) Hemoglobin 13.6g/dl (12.0-16.0) Hematocrit 43.2% (37.0-47.0) Mean Corpuscular Volume 90.9fl (82.0-101.0) Mean Corpuscular Hemoglobin 28.6pg (29.0-33.0) Mean Corpuscular Hemoglobin Concent 31.5g/dl (32.0-37.0) Red Cell Distribution Width 14.1% (11.5-14.5) Platelet Count 07110^3/UL (140-415) Mean Platelet Volume 11.5fl (7.4-10.4) Neutrophils % 52.6% (39.0-77.0) Lymphocytes % 39.7% (15.0-51.0) Monocytes % 6.0% (0.0-11.0) Eosinophils % 0.4% (0.0-7.0) Basophils % 0.5% (0.0-2.0) Nucleated Red Blood Cells % 0.0/100WBC (0.0-0.0) Neutrophils # 5.510^3/ul (1.6-7.5) Lymphocytes # 4.210^3/ul (0.8-2.9) Monocytes # 0.610^3/ul (0.3-0.9) Eosinophils # 0.010^3/ul (0.0-0.5) Basophils # 0.110^3/ul (0.0-0.1) Nucleated Red Blood Cells # 0.010^3/ul (0.0-0.0) Sodium Level 141mmol/L (135-144) Potassium Level 4.0mmol/L (3.5-5.1) Chloride Level 103mmol/L (97-110) Carbon Dioxide Level 30mmol/L (21-31) Anion Gap 12 (8-16) Blood Urea Nitrogen 12mg/dl (7-20) Creatinine 0.73mg/dl (0.44-1.00) Glucose Level 94mg/dl (70-220) Calcium Level 10.1mg/dl (8.4-10.2) Phosphorus Level 4.9mg/dl (2.5-4.9) Magnesium Level 2.0mg/dl (1.7-2.5) Albumin 3.9g/dl (3.3-4.9) Please fax copy of discharge summary to PCP MARYJO MOORE MD Jun 30, 2017 09:56 MARYJO MOORE MD Jun 30, 2017 09:56
--- NOTE | 2017-06-30 15:36 | CONS ---
Date/Time of Note Date/Time of Note DATE: 06/30/17 TIME: 15:35 Consult Date/Type/Reason Admit Date/Time Jun 26, 2017 at 03:00 Initial Consult Date 06/26/17 Type of Consultation: Pulmonary Subjective No events. Saw patient as she was being d/c'ed Objective Vital Signs Date Time Temp Pulse Resp B/P Pulse Ox O2 Delivery O2 Flow Rate FiO2 06/30/17 08:13 75 14 93 21 06/30/17 08:00 98.1 140/88 06/29/17 20:00 2.0 06/26/17 08:22 Nasal Cannula Intake and Output 06/29/17 06/29/17 06/30/17 15:00 23:00 07:00 Intake Total 600 ml 1960 ml 740 ml Balance 600 ml 1960 ml 740 ml Exam HEENT: Neck supple; no JVD; no LAD CVS: RRR, S1 and S2 CHEST: Clear ABD: Soft, NT, + BS EXT: No c/c/e Results/Medications Result Diagram: 06/30/17 0510 06/30/17 0510 Results 24 hrs Laboratory Tests Test 06/30/17 05:10 White Blood Count 10.5 Red Blood Count 4.75 Hemoglobin 13.6 Hematocrit 43.2 Mean Corpuscular Volume 90.9 Mean Corpuscular Hemoglobin 28.6 L Mean Corpuscular Hemoglobin Concent 31.5 L Red Cell Distribution Width 14.1 Platelet Count 267 Mean Platelet Volume 11.5 H Neutrophils % 52.6 Lymphocytes % 39.7 Monocytes % 6.0 Eosinophils % 0.4 Basophils % 0.5 Nucleated Red Blood Cells % 0.0 Neutrophils # 5.5 Lymphocytes # 4.2 H Monocytes # 0.6 Eosinophils # 0.0 Basophils # 0.1 Nucleated Red Blood Cells # 0.0 Sodium Level 141 Potassium Level 4.0 Chloride Level 103 Carbon Dioxide Level 30 Anion Gap 12 Blood Urea Nitrogen 12 Creatinine 0.73 Glucose Level 94 Lactic Acid Level 2.4 *H Calcium Level 10.1 Phosphorus Level 4.9 Magnesium Level 2.0 Albumin 3.9 Assessment/Plan Additional Assessment/Plan IMP: 1. Acute Asthma Exacerbation RECS: 1. D/C with CS taper; ICS; BHARAT; with outpatient PFT's and pulm follow-up GRACIELA CANALES MD Jun 30, 2017 15:36
== END 2017-06-30 12:05 | disposition home or self-care (01) | DRG 203 ==
LOC: PP2 03:00
PROVIDERS: ADMIT Family Medicine; ATTEND Family Medicine
DX: J45.901 Unspecified asthma with (acute) exacerbation (principal); I10 Essential (primary) hypertension; J20.9 Acute bronchitis, unspecified
CPT/HCPCS: 71020; 71250; 80053; 80061; 80069; 82962; 83036; 83605; 83735; 84145; 84443; 85025; 85651; 86140; 87040; 87081; 87275; 87276; 87279; 87280; 87449; 94640; 94664; J1956; J7030; J7040; J7512

== ENCOUNTER 2017-07-05 14:37 | Outpatient (CLI) | payer OTHER ==
[~2017-07-05] VITALS: Ht 154.9 cm; Wt 76.4 kg
[2017-07-05 14:16] VITALS: BP 134/84; PULSE 99; RESP 18; Ht 154.9 cm; Wt 76.4 kg
[~2017-07-05 14:37] MED LIST changes: +ADV10050 INH; +ALBU8.5H3 INH; +FLUT16SP17 NASAL; +HYDR25TA6 PO; +LISI10TA2 PO; +PRED10TA PO
--- NOTE | 2017-07-05 14:41 | PN ---
Date/Time of Note Date/Time of Note DATE: 07/05/17 TIME: 14:38 Outpatient Progress Note Chief Complaint Acute exacerbation of COPD/hypertension/PUD HPI Acute exacerbation of COPD/patient was recently admitted with acute exacerbation of COPD, patient has persistent chronic cough, patient was put on steroid, patient doing better, no fever chill, no shortness of breath, no wheezing, Hypertension/no headache or dizziness, no local focal weakness, PUD/no nausea vomiting, no heartburn, Review of Systems Const: No Fever, no chills, no Wt. loss, no Fatigue, normal appetite, no diaphoresis. Eyes: No pain, no discharge, no redness, no visual change, no foreign body. ENT: No pain, no bleeding, no congestion, no sore throat, no dysphagia, no discharge or rhinitis. Lymph: No adenopathy, no tender nodes, no lymphedema. Resp: No SOB, mild cough, no sputum, no wheezing, no chest pain. CV: No chest pain, no palpitaions, no HALEY, no PND, no edema. GI: Normal appetite, no pain, occasional heartburn, no nausea, no vomiting, no diarrhea, no blood, no constipation. : No frequency, no urgency, no dysuria, no hematuria, no flank pain, no discharge, no bleeding. Musc: No bone/joint pain, no back pain, no neck pain, no knee pain, no restricted ROM. Skin: No rash, no skin lesions, no erythema, no laceration, no bruising, no pruritus. Neuro: No PLATT, no dizziness, no syncope, no seizure, no focal-weakness. Endo: No polyuria, no polydypsia, no dry-skin, no temp-intolerance. Psych: No hallucinations, no depression, no anxiety, no suicidal ideation. Ext: No edema, no pain, no ulcer, no weakness. Physical Exam General Appearance: A 52 year-old female who appears well-developed, well- nourished, in no acute distress slightly obese,. HEENT: Head normocephalic, atraumatic. Pupils equal, round, reactive to light and accommodate. Sclerae are no jaundice. Nasal turbinates pink without erythema or nasal discharge. Mucous membranes pink and moist without lesions. Oropharynx clear without any exudate or discharge. NECK: Supple. Trachea midline, No thyromegaly, No cervical lymphadenopathy, No mass, No carotid bruits, No JVD, Carotid pulses 2+ bilaterally. PULMONARY: Clear to auscultaion bilaterally, No retractions, Chest expansion symmetric bilaterally, no rales, very few ronchi, no dulness on percussion. CARDIAC: Normal SI and S2, Regular rate and rythm, no murmur, gallop, or rub. GASTROINTESTINAL: Abdomen is soft, non-tender, Non Rigid, No distention, Positive bowel sounds x4 quadrants, Liver normal. SKIN: Warm, dry, no rash, no bruise, no echmosis. EXTREMITIES: Bilateral lower extremities normal, no edema, no phlabitus, pulse palpable, no contracture. MUSCULOSKELETAL: Spine Normal, Non-tender, Normal range of motion, No swelling, no deformity, no clubbing, or cyanosis, the patient has no edema to bilateral lower extremities, dorsalis pedis pulses palpable bilaterally. NEUROLOGIC: The patient is awake, alert, oriented, responding to yes/no questions appropriately, moving all extremities, cranial nerve intact, normal strenght, normal power, normal coordination, normal gait. Allergies Coded Allergies: No Known Allergies (Verified Allergy, Mild, 11/04/10) PMH Acute exacerbation of COPD/hypertension/PUD/lactic acidosis/persistent cough Social Hx No smoking no drinking, Family Hx Noncontributory, Patient History: Endocrine and metabolic disease 32 MOTHER, Onset:50's - 60 Hypertension 33 FATHER, Onset:50's - 60 32 MOTHER Assessment/Plan Impression Acute exacerbation of COPD/improving Hypertension PUD Plan Patient education done about her disease and condition, Patient encouraged to follow with the primary care physician, Patient has all her medication, patient advised to take medication regular basis , and if her shortness of breath get worse to inform primary care physician, Monitor blood pressure, monitor stool, Medications Home Meds Active Scripts Albuterol Sulfate* (Proair HFA*) 8.5 Gm Hfa.aer.ad, 2 PUFF INH Q4H Y for WHEEZING AND SOB, #1 INHALER Prov:MARYJO MOORE MD 06/30/17 Prednisone* (Prednisone*) 10 Mg Tab, 10 MG PO DAILY for 9 Days, #18 TAB 3 tabs (30mg) for 3 days then 2 tab(20mg) for 3 days then 1 tab (10mg) for 3 days Prov:MARYJO MOORE MD 06/30/17 Fluticasone Propionate* (Fluticasone Propionate* Nasal) 50 Mcg/[place] - 16 Gm [place].susp, 1 SPRAY NASAL BID for 30 Days, #1 BOTTLE Prov:MARYJO MOORE MD 06/30/17 Salmeterol Xinaf-Fluticasone* (Advair*) 100/50 Diskus Inhaler, 1 INH INH BID for 30 Days, #1 DISK Prov:MARYJO MOORE MD 06/30/17 Reported Medications Hydrochlorothiazide (Hydrochlorothiazide) 25 Mg Tablet, 25 MG PO DAILY, #30 TAB 06/26/17 Lisinopril* (Lisinopril*) 10 Mg Tablet, 10 MG PO DAILY, #30 TAB 06/26/17 Vits W-Ca,Fe,Fa(<1MG) ( Vitamins) 1 Tab Tablet 11/04/10 SINGH GARCIA MD Jul 05, 2017 14:41
== END 2017-07-05 17:00 | disposition home or self-care (01) ==
LOC: DCC 14:37
PROVIDERS: ATTEND Internal Medicine
DX: J45.901 Unspecified asthma with (acute) exacerbation (principal); R50.9 Fever, unspecified; I10 Essential (primary) hypertension; K27.9 Peptic ulcer, site unspecified, unspecified as acute or chronic, without hemorrhage or perforation
CPT/HCPCS: G0463

== ENCOUNTER 2017-07-26 14:49 | Outpatient (CLI) | payer OTHER ==
[~2017-07-26] VITALS: Ht 154.9 cm; Wt 78.2 kg
[~2017-07-26 14:49] MED LIST changes: -PRED10TA PO
[2017-07-26 14:59] VITALS: Ht 154.9 cm; Wt 78.2 kg
[2017-07-26 15:00] VITALS: BP 141/86; PULSE 103; RESP 16
--- NOTE | 2017-07-26 15:21 | PN ---
Date/Time of Note Date/Time of Note DATE: 07/26/17 TIME: 15:18 Outpatient Progress Note Chief Complaint COPD/hypertension/PUD HPI COPD/she still has cough off and on, no wheezing, no fever chill, no hemoptysis , no expectoration, Hypertension/no headache or dizziness, PUD/no nausea or vomiting, no heartburn, Review of Systems Const: No Fever, no chills, no Wt. loss, no Fatigue, normal appetite, no diaphoresis. Eyes: No pain, no discharge, no redness, no visual change, no foreign body. ENT: No pain, no bleeding, no congestion, no sore throat, no dysphagia, no discharge or rhinitis. Lymph: No adenopathy, no tender nodes, no lymphedema. Resp: No SOB, slight cough, without sputum, no wheezing, no chest pain. CV: No chest pain, no palpitaions, no HALEY, no PND, no edema. GI: Normal appetite, no pain, no nausea, no vomiting, no diarrhea, no blood, no constipation. : No frequency, no urgency, no dysuria, no hematuria, no flank pain, no discharge, no bleeding. Musc: No bone/joint pain, no back pain, no neck pain, no knee pain, no restricted ROM. Skin: No rash, no skin lesions, no erythema, no laceration, no bruising, no pruritus. Neuro: No PLATT, no dizziness, no syncope, no seizure, no focal-weakness. Endo: No polyuria, no polydypsia, no dry-skin, no temp-intolerance. Psych: No hallucinations, no depression, no anxiety, no suicidal ideation. Ext: No edema, no pain, no ulcer, no weakness. Physical Exam Vital Signs Date Time Temp Pulse Resp B/P Pulse Ox O2 Delivery O2 Flow Rate FiO2 07/26/17 15:00 98.2 103 16 141/86 97 Room Air General Appearance: A 52 year-old female who appears well-developed, well- nourished, in no acute distress. HEENT: Head normocephalic, atraumatic. Pupils equal, round, reactive to light and accommodate. Sclerae are no jaundice. Nasal turbinates pink without erythema or nasal discharge. Mucous membranes pink and moist without lesions. Oropharynx clear without any exudate or discharge. NECK: Supple. Trachea midline, No thyromegaly, No cervical lymphadenopathy, No mass, No carotid bruits, No JVD, Carotid pulses 2+ bilaterally. PULMONARY: Clear to auscultaion bilaterally, No retractions, Chest expansion symmetric bilaterally, no rales, no ronchi, no dulness on percussion. CARDIAC: Normal SI and S2, Regular rate and rythm, no murmur, gallop, or rub. GASTROINTESTINAL: Abdomen is soft, non-tender, Non Rigid, No distention, Positive bowel sounds x4 quadrants, Liver normal. SKIN: Warm, dry, no rash, no bruise, no echmosis. EXTREMITIES: Bilateral lower extremities normal, no edema, no phlabitus, pulse palpable, no contracture. MUSCULOSKELETAL: Spine Normal, Non-tender, Normal range of motion, No swelling, no deformity, no clubbing, or cyanosis, the patient has no edema to bilateral lower extremities, dorsalis pedis pulses palpable bilaterally. NEUROLOGIC: The patient is awake, alert, oriented, responding to yes/no questions appropriately, moving all extremities, cranial nerve intact, normal strenght, normal power, normal coordination, normal gait. Allergies Coded Allergies: No Known Allergies (Verified Allergy, Mild, 11/04/10) PMH No change no change Social Hx No change Family Hx No change Patient History: Endocrine and metabolic disease 32 MOTHER, Onset:50's - 60 Hypertension 33 FATHER, Onset:50's - 60 32 MOTHER Assessment/Plan Impression Acute exacerbation of COPD improving Hypertension PUD Plan Patient education done about her condition and disease, Patient was taking inhaler only once a day, patient has cough without much expectoration, patient explained that patient is taking her medication only once a day, so most of the hours she is without any medication, patient was asked to take inhaler 4 times a day, Patient encouraged to follow with the primary physician, Medications Home Meds Active Scripts Albuterol Sulfate* (Proair HFA*) 8.5 Gm Hfa.aer.ad, 2 PUFF INH Q4H Y for WHEEZING AND SOB, #1 INHALER Prov:MARYJO MOORE MD 06/30/17 Fluticasone Propionate* (Fluticasone Propionate* Nasal) 50 Mcg/[place] - 16 Gm [place].susp, 1 SPRAY NASAL BID for 30 Days, #1 BOTTLE Prov:MARYJO MOORE MD 06/30/17 Salmeterol Xinaf-Fluticasone* (Advair*) 100/50 Diskus Inhaler, 1 INH INH BID for 30 Days, #1 DISK Prov:MARYJO MOORE MD 06/30/17 Reported Medications Hydrochlorothiazide (Hydrochlorothiazide) 25 Mg Tablet, 25 MG PO DAILY, #30 TAB 06/26/17 Lisinopril* (Lisinopril*) 10 Mg Tablet, 10 MG PO DAILY, #30 TAB 06/26/17 Vits W-Ca,Fe,Fa(<1MG) ( Vitamins) 1 Tab Tablet 11/04/10 SINGH GARCIA MD Jul 26, 2017 15:21
== END 2017-07-26 15:49 | disposition home or self-care (01) ==
LOC: DCC 14:49
PROVIDERS: ATTEND Internal Medicine
DX: J44.9 Chronic obstructive pulmonary disease, unspecified (principal); I10 Essential (primary) hypertension; K27.9 Peptic ulcer, site unspecified, unspecified as acute or chronic, without hemorrhage or perforation
CPT/HCPCS: G0463